=== PATIENT | female | born 1995 | race African-American/Black ===

== ENCOUNTER 2020-10-21 16:38 | Emergency (ER) | payer MEDICAID ==
[~2020-10-21] VITALS: Ht 167.6 cm; Wt 90.9 kg
[2020-10-21] MEDS ORDERED: OxyCODONE HCL/ACETAMINOPHEN 5-325 MG TABLET PO ONE (20:00)
[2020-10-21 21:40] VITALS: BP 127/69
== END 2020-10-21 22:52 | disposition home or self-care (01) ==
LOC: EMS 16:42
DX: S82.832A Other fracture of upper and lower end of left fibula, initial encounter for closed fracture (principal); X50.9XXA Other and unspecified overexertion or strenuous movements or postures, initial encounter; Y93.89 Activity, other specified; Y92.89 Other specified places as the place of occurrence of the external cause; Y99.8 Other external cause status
CPT/HCPCS: 29515; 73700; 99284; 99285; 73610-TC; Z7502; Z7610

== ENCOUNTER 2022-01-05 07:52 | Emergency (ER) | payer MEDICAID ==
[~2022-01-05] VITALS: Ht 167.6 cm; Wt 100.0 kg
[2022-01-05 09:45] VITALS: BP 120/62
== END 2022-01-05 09:53 | disposition home or self-care (01) ==
LOC: EMS 08:00
DX: S93.602A Unspecified sprain of left foot, initial encounter (principal); Z88.0 Allergy status to penicillin; X58.XXXA Exposure to other specified factors, initial encounter; Y93.89 Activity, other specified; Y92.89 Other specified places as the place of occurrence of the external cause; Y99.0 Civilian activity done for income or pay
CPT/HCPCS: 99283

== ENCOUNTER 2022-05-17 12:22 | Emergency (ER) | payer MEDICAID, OTHER ==
[~2022-05-17] VITALS: Ht 167.6 cm; Wt 99.1 kg
[2022-05-17 13:00] LABS: COVID AG,FIA SOURCE NASAL SWAB
[2022-05-17 13:54] LABS: INFLUENZA TYPE A NEGATIVE FOR TYPE A (NEGATIVE); INFLUENZA TYPE B NEGATIVE FOR TYPE B (NEGATIVE)
[2022-05-17 18:08] VITALS: BP 130/77
== END 2022-05-17 18:09 | disposition home or self-care (01) ==
LOC: EMS 12:43
DX: J06.9 Acute upper respiratory infection, unspecified (principal); Z20.822 Contact with and (suspected) exposure to COVID-19; Z88.0 Allergy status to penicillin
CPT/HCPCS: 99284; 71045; 87426; 87804; U0003; C9803